=== PATIENT | female | born 1950 | race Caucasian/White ===

== ENCOUNTER 2016-06-26 10:01 | Inpatient (IN) | payer OTHER, MEDICARE ==
[~2016-06-26] VITALS: Ht 157.5 cm; Wt 72.3 kg
[2016-07-28] MEDS ORDERED: HYDR-3533 PO (11:22)
[2016-07-28] MEDS ORDERED: MOBI15TA PO (11:22)
[2016-07-28] MEDS ORDERED: METO50TA PO (11:22)
[2016-07-28] MEDS ORDERED: VITA10007 PO (11:22)
[2016-07-28] MEDS ORDERED: CINN500T PO (11:22)
[2016-07-28] MEDS ORDERED: CALC600T25 PO (11:22)
[2016-07-28] MEDS ORDERED: TEMA30CA PO (11:22)
[2016-07-28] MEDS ORDERED: TRAM50TA PO (11:22)
[2016-07-28] MEDS ORDERED: RISP1TAB2 PO (11:22)
[2016-07-28] MEDS ORDERED: AMLO5TAB2 PO (11:22)
[2016-07-28] MEDS ORDERED: HYDR25TA5 PO (11:22)
[2016-07-28] MEDS ORDERED: FISH1000 PO (11:22)
[2016-07-28] MEDS ORDERED: LISI-515 PO (11:22)
[2016-07-28] MEDS ORDERED: SUPETAB20 PO (11:22)
[2016-07-28] MEDS ORDERED: METF500T PO (11:22)
[2016-07-28] MEDS ORDERED: META48.53 PO (11:22)
[2016-07-28] MEDS ORDERED: VITA100018 PO (11:22)
[2016-07-28] MEDS ORDERED: BACTOIN EACH NARE (11:35)
[2016-07-28] MEDS ORDERED: SILV1CRE80 TOPICAL (11:35)
[2016-07-31] MEDS ORDERED: SODIUM CHLOR 0.9% 250 ML INJ 250 ML ONE (06:09)
[2016-07-31] MEDS ORDERED: ceFAZolin 2 GM PREMIX 50 ML ONE (06:09)
[2016-07-31] MEDS ORDERED: DEXAMETHASONE SOD PHOS 20 MG/5 ML VIAL ONE (06:09)
[2016-07-31] MEDS ORDERED: VANCOMYCIN HCL 1000 MG VIAL ONE (06:09)
[2016-07-31 06:10] VITALS: BP 109/52; PULSE 59; RESP 20; TEMP 97.9; O2SAT 98
[2016-07-31] MEDS ORDERED: LACTATED RINGER'S 1000 ML INJ 1,000 ML ONE (06:10)
[2016-07-31] MEDS ORDERED: MIDAZOLAM HCL 5 MG/5 ML VIAL ONE (06:57)
[2016-07-31] MEDS ORDERED: DEXAMETHASONE SOD PHOS 20 MG/5 ML VIAL IV ONE (07:15)
[2016-07-31] MEDS ORDERED: VANCOMYCIN 1000 MG/NS 250 ML (for <70 kg) IV SCH ×2 (07:15)
[2016-07-31] MEDS: ROPIVACAINE PERI-ARTICULAR INJECTION. PERIART SCH ×10 (07:15→07:46)
[2016-07-31] MEDS: TRANEXAMIC ACID INJ 988 MG in SODIUM CHLORIDE 0.9% INJ 100 ML IV SCH ×2 (07:15→07:43)
[2016-07-31] MEDS ORDERED: ceFAZolin 2 GM PREMIX 50 ML IV SCH (07:15)
[2016-07-31] MEDS: TRANEXAMIC PERI-ARTICULAR 3,000 MG/NS 100 ML P-ARTICULR SCH ×4 (07:15→07:46)
[2016-07-31] MEDS ORDERED: POVIDONE IODINE 7.5% SCRUB 118 ML BOTTLE TOP SCH (07:15)
[2016-07-31] MEDS ORDERED: CHLORHEXIDINE GLUCONATE 4% SOLN 120 ML BTL TOP SCH (07:15)
[2016-07-31] MEDS ORDERED: HYDR-3288 PO (07:23)
[2016-07-31] MEDS ORDERED: ENOX30P SQ (07:24)
[2016-07-31] MEDS ORDERED: ASPI81CH3 CHEW (07:25)
[2016-07-31] MEDS ORDERED: MAGNESIUM HYDROXIDE SUSP 30 ML CUP PO PRN (07:30)
[2016-07-31] MEDS ORDERED: MORPHINE SULFATE 4 MG/ML INJ IV PUSH PRN (07:30)
[2016-07-31] MEDS ORDERED: ALUMINUM/MAGNESIUM/SIMETH 30 ML CUP PO PRN (07:30)
[2016-07-31] MEDS ORDERED: ONDANSETRON HCL 4 MG/2 ML VIAL IVP PRN (07:30)
[2016-07-31] MEDS ORDERED: SODIUM CHLORIDE 0.9% FLUSH 5 ML FLUSH IVF PRN (07:30)
[2016-07-31] MEDS ORDERED: NALOXONE HCL 0.4 MG/ML AMP IV PRN (07:30)
[2016-07-31] MEDS ORDERED: diphenhydrAMINE HCL 50 MG/ML VIAL IV PRN (07:30)
[2016-07-31] MEDS ORDERED: BISACODYL 10 MG SUPP PR PRN (07:30)
[2016-07-31] MEDS ORDERED: GENTAMICIN SULFATE 80 MG/2 ML VIAL IRRIGATION ONE (07:46)
[2016-07-31] MEDS: LISINOPRIL 20 MG TAB PO SCH ×2 (09:00→21:19)
[2016-07-31] MEDS: amLODIPine BESYLATE 5 MG TAB PO SCH (09:00)
[2016-07-31] MEDS: SODIUM CHLORIDE 0.9% FLUSH 5 ML FLUSH IVF SCH ×2 (09:00→21:00)
[2016-07-31] MEDS: METOPROLOL TARTRATE 50 MG TAB PO SCH ×2 (09:00→21:19)
[2016-07-31] MEDS: HYDROCHLOROTHIAZIDE 25 MG TAB PO SCH (09:00)
[2016-07-31] MEDS ORDERED: Post-op Orders (for Pharmacy) MISC XX ONE (09:06)
[2016-07-31] MEDS ORDERED: fentaNYL CITRATE 250 MCG/5 ML AMP ONE (09:26)
[2016-07-31] MEDS: SODIUM CHLOR 0.9% 1000 ML INJ 1,000 ML IV SCH ×2 (09:29→17:21)
--- NOTE | 2016-07-31 09:41 | RADRPT ---
EXAM DATE/TIME: 07/31/2016 09:14 [place] COMPARISON: No previous studies available for comparison. INDICATIONS : Left knee post operative. MEDICAL HISTORY : None. SURGICAL HISTORY : Left knee replacement. ENCOUNTER: Initial ACUITY: 1 day PAIN SCORE: Non-responsive. LOCATION: Right knee FINDINGS: Two view examination of the right knee demonstrates total knee arthroplasty with expected regional in tra-articular air. All 3 components are appropriately positioned without fracture. CONCLUSION: Appropriate postoperative appearance of the right knee status post total arthroplasty. No fractu re. Damon Steve MD on July 31, 2016 at 9:38 Board Certified Radiologist. This report was verified electronically.
[2016-07-31] MEDS ORDERED: DO NOT ADM ANY ANTICOAGULANT DRUGS XX PRN (09:52)
[2016-07-31] MEDS ORDERED: ENALAPRILAT 1.25 MG/ML VIAL IV PUSH PRN (10:00)
[2016-07-31 10:19] VITALS: BP 132/58; PULSE 86; RESP 16; TEMP 95.5; O2SAT 100
[2016-07-31] MEDS: ACETAMINOPHEN/HYDROcodone 325 MG/7.5 MG TAB PO PRN ×3 (10:40→21:22)
[2016-07-31] MEDS: INSULIN ASPART SUPPLEMENTAL SCALE SQ SCH ×3 (11:00→21:18)
[2016-07-31] MEDS ORDERED: NEOSTIGMINE 3 MG/3 ML SYR IV ONE (12:39)
[2016-07-31] MEDS ORDERED: ONDANSETRON HCL 4 MG/2 ML VIAL IV PUSH ONE (12:39)
[2016-07-31] MEDS ORDERED: ePHEDrine/NS 25 MG/5 ML SYR IV ONE (12:39)
[2016-07-31] MEDS ORDERED: PHENYLEPH/NS 1000 MCG/10 ML SYR IV ONE (12:39)
[2016-07-31] MEDS ORDERED: PROPOFOL 200 MG/20 ML AMP IV ONE (12:39)
[2016-07-31] MEDS ORDERED: BUPIVACAINE LIPOSOME PF 1.3% 20 ML VIAL ONE (12:40)
[2016-07-31 14:20] VITALS: O2SAT 99
--- NOTE | 2016-07-31 15:57 | MP ---
cc: CHANTE NEVAREZ M.D. DATE OF SURGERY: 07/31/2016 PREOPERATIVE DIAGNOSIS Right knee osteoarthritis. POSTOPERATIVE DIAGNOSES Right knee osteoarthritis. PROCEDURE Right total knee arthroplasty. SURGEON Dr. Chante Nevarez. DETENTION WORKER YOLANDA Hoskins ANESTHESIA General with a adductor canal block. ESTIMATED BLOOD LOSS Less than 50 ccs. TOURNIQUET TIME 46 minutes at 250 mmHg. COMPLICATIONS None. IMPLANTS USED DePuy Attune size 5 posterior stabilized femoral component, size 5 rotating platform tibia baseplate, size 5 mm polyethylene tibial insert, size 35 mm patella. JUSTIFICATION This patient is a 56-year-old female with a history of severe end-stage osteoarthritis involving the right knee. She has severe disabling pain with standing, walking, ambulation, weight-bearing activity, even severe pain at rest. She has failed greater than 3 months of nonoperative conservative treatment to include medication, therapy, injections, ambulatory assisted aids, home exercise program, activity modification, weight loss attempts. X-rays of the right knee reveal severe end-stage osteoarthritis with [id number] joint space narrowing, subchondral sclerosis, subchondral cyst, osteophyte formation and valgus deformity. The patient was counseled as to the risks, benefits and alternatives to a total knee arthroplasty. The risks were discussed which include but limited to anesthesia, bleeding, infection, damage to nerves, blood vessels, pain, stiffness, failure of components, blood clots, pulmonary embolism, even . The patient's pain is severe, it interferes with activities of daily living. She favored the benefits over the risks and did wish to proceed with surgery. PROCEDURE IN DETAIL A written consent was obtained. The patient was identified by name, taken to the operating room and placed supine on the operating table. General anesthesia was administered as well as 2 grams of IV Ancef and 1 gram of IV vancomycin. A well-padded tourniquet was placed on the right thigh. The right lower extremity was prepped and draped using isopropyl alcohol, Hibiclens solution and Chloraprep solution. After a time-out was performed an Esmarch bandage was used to exsanguinate the right lower extremity. The tourniquet was inflated to 250 mmHg. A longitudinal incision was made over the anterior aspect of the right knee and medial parapatellar arthrotomy was performed. The patella was everted. A patellar resection guide was used to resect 9.5 mm of patella. The size 35 mm guide was placed, three drill holes were placed and a 35 mm trial fit well. Attention was turned to the femur where an intramedullary guide mariama was placed. The distal femoral guide was set to remove 10 mm of distal femur 5 degrees off the anatomic valgus axis alignment. An oscillating saw was used to perform the distal femoral cut. An extramedullary tibial guide was placed and used to resect 5 mm off the lowest portion of the medial tibial plateau. The tibial guide was pinned in place. Tibia cut was performed. There was evidence of some bone loss laterally and I moved the guide down to take two additional millimeters of bone off the tibia. A 5 mm spacer block showed full extension. Attention was turned back to the femur where the AP sizing block measured a size 5. The 3 degree external rotation anterior reference guide was used to pin a size [address] The anterior, posterior chamfer cuts were performed. A size 5 PCL box cut was pinned in place, the PCL was boxed out with an oscillating saw. The medial and lateral meniscus remnants were removed as well as bone and soft tissue away from the posterior portion of the knee. A size 5 tibia baseplate was pinned in place. The tibia was drilled and punched. The final components were cemented in place. With the 5-mm tibial insert the leg could achieve full extension, 0 degrees of flexion to 140. No evidence of tibial lift-off, varus-valgus balance appeared appropriate and symmetric and the patella was noted to track centrally within the trochlear groove. The tourniquet was deflated. Bovie cautery was used for hemostasis. The knee was thoroughly irrigated with sterile saline pulse lavage antibiotic impregnated solution. The arthrotomy incision was closed with #1 Vicryl suture, subcutaneous layer with 2-0 Vicryl suture, skin was closed with Dermabond. Sterile dressing was applied. The patient tolerated the procedure well with no intraoperative complications noted. Kulwinder Winston, physician commissary assistant certified was present during the entire procedure to include patient positioning and the procedure itself. The medical necessity of a physician commissary assistant was indicated in this case due to the complexity of the procedure. He assisted with appropriate manipulation of the leg and also retraction of muscle, tendon, bone and neurovascular structures. He assisted with both preparation of bone cuts and also implantation of the prosthetic replacement. MD NURYS Nicolas/CECI /8:50 AM /3:22 PM
[2016-07-31 16:00] VITALS: BP 103/53; PULSE 70; RESP 18; TEMP 98.5; O2SAT 97
[2016-07-31] MEDS: MAGNESIUM HYDROXIDE SUSP 30 ML CUP PO SCH ×2 (16:00→21:17)
[2016-07-31 17:41] LABS: ANION GAP 6 MEQ/L (5-15); BICARBONATE 28.7 MEQ/L (21.0-32.0); BLOOD UREA NITROGEN 14 MG/DL (7-18); CHLORIDE 97 MEQ/L (98-107); GLOMERULAR FILTRATION RATE 67 ML/MIN (>89); POTASSIUM 4.1 MEQ/L (3.5-5.1); SODIUM (NA) 132 MEQ/L (136-145)
[2016-07-31] MEDS ORDERED: DOCUSATE SODIUM 50 MG/SENNA 8.6 MG TAB PO ONE (17:45)
[2016-07-31] MEDS: metFORMIN HCL 500 MG TAB PO SCH (18:30)
--- NOTE | 2016-07-31 19:13 | PD.CONS ---
HPI Service [facility] ([place], [place])ists Consult Requested By Primary Care Physician Angela Sanders Diagnoses: History of Present Illness 66-year-old female with a history of hypertension, diabetes mellitus, arthritis who is postoperative day 0 status post right total knee arthroplasty. He reports feeling fine prior to the procedure. She currently denies any nausea, vomiting, chest pain, shortness of breath. She does report a stress test 2 years ago which was negative. Most recent bowel movement was yesterday. Review of Systems performed and negative except for HPI and past medical history. Past Family Social History Allergies: Coded Allergies: Codeine (Verified Allergy, Severe, itching, 07/31/16) Gabapentin (Verified Allergy, Severe, cramps, 07/31/16) Pravastatin (Verified Allergy, Severe, cramps, 07/31/16) Past Medical History Arthritis Fibromyalgia Insomnia First rib bones bones removed bilaterally in 1979 due to thoracic outlet syndrome Past Surgical History First ribs bilaterally removed in 1979 Tonsillectomy Family History Father at age 39 from lung cancer. Mother in her 70s due to cough patient's from colon cancer, heart disease. Social History Nonsmoker, nondrinker, denies any illicit drugs. Physical Exam Vital Signs Vital Signs Date Time Temp Pulse Resp B/P Pulse Ox O2 Delivery O2 Flow Rate FiO2 07/31/16 16:00 98.5 70 18 103/53 97 07/31/16 14:20 99 07/31/16 10:19 95.5 86 16 132/58 100 07/31/16 09:45 67 16 138/71 95 Nasal Cannula 2 07/31/16 09:30 55 16 148/71 95 Nasal Cannula 2 07/31/16 09:15 65 16 142/70 95 Nasal Cannula 2 07/31/16 09:05 98.1 77 16 140/74 94 Nasal Cannula 2 07/31/16 06:10 97.9 59 20 109/52 98 Physical Exam GENERAL: This is a well-nourished, well-developed patient, in no apparent distress.sitting up in bed. SKIN: No rashes, ecchymoses or lesions. Cool and dry. HEAD: Atraumatic. Normocephalic EYES: Pupils equal round and reactive. Extraocular motions intact. No scleral icterus. No injection or drainage. ENT: Nose without bleeding, purulent drainage or septal hematoma. Throat without erythema, tonsillar hypertrophy or exudate. Uvula midline. Airway patent. NECK: Trachea midline. No JVD or lymphadenopathy. Supple, nontender, no meningeal signs. CARDIOVASCULAR: Regular rate and rhythm without murmurs, gallops, or rubs. RESPIRATORY: Clear to auscultation. Breath sounds equal bilaterally. No wheezes , rales, or rhonchi. GASTROINTESTINAL: Abdomen soft, non-tender, nondistended. No hepato-splenomegaly , or palpable masses. No guarding. MUSCULOSKELETAL: Extremities without clubbing, cyanosis, or edema. No joint tenderness, effusion, or edema noted. No calf tenderness. Negative Homans sign bilaterally.postoperative knee not examined. NEUROLOGICAL: Awake and alert. Cranial nerves II through XII intact. Motor and sensory grossly within normal limits. 5 out of 5 strength bilateral upper extremities. Postoperative knee not examined. Peripheral profusion intact. Normal speech. Laboratory Laboratory Tests Test 07/31/16 07/31/16 06:18 16:35 Blood Type B NEGATIVE Antibody Screen NEGATIVE Blood Bank Comment Hemoglobin 11.7 Sodium Level 132 Potassium Level 4.1 Chloride Level 97 Carbon Dioxide Level 28.7 Anion Gap 6 Blood Urea Nitrogen 14 Creatinine 0.85 Estimat Glomerular Filtration 67 Rate Random Glucose 153 Calcium Level 8.3 Result Diagram: 07/31/16 1635 07/31/16 1635 Assessment and Plan Assessment and Plan //Postoperative total knee arthroplasty on 07/31/16 Postoperative management as per surgical service Pain management as per surgical service Await return of bowel function. Cathartics ordered. //Hypertension. Blood pressure except will. Continue amlodipine. Continue lisinopril Continue hydrochlorothiazide. Continue metoprolol. Continue to monitor. As needed Vasotec. //Hyponatremia. Mild. Unknown chronicity. Possibly secondary to hydrochlorothiazide. We will discontinue fluids and continue to monitor. //Diabetes mellitus. Chronic. A1c pending. Continue metformin. Insulin sliding scale. //insomnia. Chronic. Continue Risperdal at night. Prophylaxis. As per surgical service. Discussed Condition With patient, nurse. Jose Marie MD Jul 31, 2016 19:12
[2016-07-31 20:07] VITALS: BP 117/55; PULSE 60; RESP 19; TEMP 96.8; O2SAT 100
[2016-07-31] MEDS: SENNOSIDES 8.6 MG TAB PO SCH (21:17)
[2016-07-31] MEDS: risperiDONE 1 MG TAB PO SCH (21:18)
[2016-07-31] MEDS: ENOXAPARIN SODIUM 30 MG/0.3 ML SYRINGE SQ SCH (21:18)
[2016-07-31 21:22] LABS: HEMOGLOBIN A1b 0.9 %; HEMOGLOBIN Ao 85.2 %; HEMOGLOBIN F 0.9 %; HEMOGLOBIN LA1C 2.5 %; HEMOGLOBIN P3 3.6 %
[2016-08-01] VITALS (8 sets, daily range): BP systolic 100–129; BP diastolic 47–66; PULSE 52–70; RESP 15–19; TEMP 96–98.8; O2SAT 96–99
[2016-08-01] MEDS: TEMAZEPAM 15 MG CAP PO SCH ×2 (00:33→22:41)
[2016-08-01] MEDS: SODIUM CHLOR 0.9% 1000 ML INJ 1,000 ML IV SCH ×3 (00:34→21:20)
[2016-08-01 06:07] LABS: HEMATOCRIT 30.5 % (35.0-46.0); MEAN CELL VOLUME 88.5 FL (80.0-100.0); MEAN CORPUSCULAR HEMOGLOBIN 31.2 PG (27.0-34.0); MEAN CORPUSCULAR HGB CONC 35.2 % (32.0-36.0); PLATELET COUNT 246 TH/MM3 (150-450); RED BLOOD COUNT 3.44 MIL/MM3 (4.00-5.30); RED CELL DISTRIBUTION WIDTH 12.8 % (11.6-17.2); REVIEW FLAG FINAL; WHITE BLOOD COUNT 11.2 TH/MM3 (4.0-11.0)
[2016-08-01 06:34] LABS: BICARBONATE 28.6 MEQ/L (21.0-32.0); POTASSIUM 3.8 MEQ/L (3.5-5.1)
[2016-08-01] MEDS: INSULIN ASPART SUPPLEMENTAL SCALE SQ SCH ×4 (07:00→20:57)
--- NOTE | 2016-08-01 08:46 | PD.ORT.PN ---
Subjective Post Op Day #: 1 Subjective Remarks painful but tolerable. Objective Vitals Vital Signs Date Time Temp Pulse Resp B/P Pulse Ox O2 Delivery O2 Flow Rate FiO2 08/01/16 08:07 97.6 54 18 129/60 99 08/01/16 06:55 Room Air 08/01/16 04:32 96.0 54 18 119/56 99 08/01/16 00:11 96.2 52 19 120/58 96 07/31/16 20:07 96.8 60 19 117/55 100 07/31/16 19:17 Room Air 07/31/16 16:00 98.5 70 18 103/53 97 07/31/16 14:20 99 07/31/16 10:19 95.5 86 16 132/58 100 07/31/16 09:45 67 16 138/71 95 Nasal Cannula 2 07/31/16 09:30 55 16 148/71 95 Nasal Cannula 2 07/31/16 09:15 65 16 142/70 95 Nasal Cannula 2 07/31/16 09:05 98.1 77 16 140/74 94 Nasal Cannula 2 I/O 07/31/16 07/31/16 07/31/16 08/01/16 08/01/16 08/01/16 07:00 15:00 23:00 07:00 15:00 23:00 Intake Total 1370 ml 915 ml 845 ml Output Total 985 ml 700 ml 700 ml Balance 385 ml 215 ml 145 ml Intake Oral 720 ml 720 ml 360 ml IV Total 50 ml 195 ml 485 ml Other 600 ml Output Urine Total 835 ml 700 ml 700 ml Estimated Blood Loss 50 ml Other 100 ml # Bowel Movements 0 0 Result Diagram: 08/01/16 0525 08/01/16 0525 Objective Remarks in bed, nad dressing c/d/i neg homans nvi Assessment & Plan Ortho Post Op Day #: 1 Problem List: Assessment and Plan s/p R TKA wbat daily dressing changes lovenox d/c planning home with [facility] and pt rx in chart f/up dr. smith 2 weeks Jose Winston Aug 01, 2016 08:46
--- NOTE | 2016-08-01 08:48 | HHI.DCPOC ---
Discharge Care Plan Diagnosis: (1) Primary localized osteoarthrosis, lower leg Your Health Problems Are: Difficulty with ADL Goals to Promote Your Health * To prevent worsening of your condition and complications * To maintain your health at the optimal level Directions to Meet Your Goals Take your medications as prescribed Follow your dietary instruction Follow activity as directed Keep your appointments as scheduled Take your immunizations and boosters as scheduled If your symptoms worsen call your PCP, if no PCP go to Urgent Care Center or Emergency Room Smoking is Dangerous to Your Health. Avoid second hand smoke Call the 24-hour hour crisis hotline for domestic abuse at Jose Winston Aug 01, 2016 08:48
--- NOTE | 2016-08-01 08:49 | HHI.FF ---
Face to Face Verification Diagnosis: (1) Primary localized osteoarthrosis, lower leg Physical Therapy Gait training, Safety evaluation, Transfer training, bed to chair Knee: Total knee, Protocol: Right, Full weight bearing Right LE Weight Bearing: WB as tolerated Nursing RN: 3 days/week x 2 weeks Nursing: Sandrine teaching, Dressing changes Dressing Changes: Daily dressing change I have seen patient Opal Mcintosh on 08/01/16. My clinical findings support the need for the requested home health care services because: Limited ability to care for self High risk of falls I certify that my clinical findings support that this patient is homebound because: Post-op weakness Unsteady gait/balance Jose Winston Aug 01, 2016 08:49
[2016-08-01] MEDS ORDERED: WALKER WHEELS/F1 MIS (08:50)
[2016-08-01] MEDS ORDERED: COMMODE 3-IN-11 MIS (08:50)
[2016-08-01] MEDS: ACETAMINOPHEN/HYDROcodone 325 MG/7.5 MG TAB PO PRN ×4 (09:25→22:41)
[2016-08-01] MEDS: HYDROCHLOROTHIAZIDE 25 MG TAB PO SCH (09:35)
[2016-08-01] MEDS: MAGNESIUM HYDROXIDE SUSP 30 ML CUP PO SCH ×2 (09:35→21:17)
[2016-08-01] MEDS: METOPROLOL TARTRATE 50 MG TAB PO SCH ×2 (09:35→21:16)
[2016-08-01] MEDS: LISINOPRIL 20 MG TAB PO SCH ×2 (09:36→21:16)
[2016-08-01] MEDS: metFORMIN HCL 500 MG TAB PO SCH ×2 (09:36→17:37)
[2016-08-01] MEDS: amLODIPine BESYLATE 5 MG TAB PO SCH (09:36)
[2016-08-01] MEDS ORDERED: PNEUMOCOCCAL POLYVALENT INJ 25 MCG/0.5 ML SYR IM ONE (10:00)
[2016-08-01] MEDS: SODIUM CHLORIDE 0.9% FLUSH 5 ML FLUSH IVF SCH ×2 (12:21→21:00)
[2016-08-01] MEDS: SENNOSIDES 8.6 MG TAB PO SCH (21:16)
[2016-08-01] MEDS: MULTIVITAMINS/MINERALS THERAPEUTIC TAB PO SCH (21:16)
[2016-08-01] MEDS: risperiDONE 1 MG TAB PO SCH (21:16)
[2016-08-01] MEDS: DOCUSATE SODIUM 100 MG CAP PO SCH (21:16)
[2016-08-01] MEDS: ENOXAPARIN SODIUM 30 MG/0.3 ML SYRINGE SQ SCH (21:17)
--- NOTE | 2016-08-01 22:35 | HHI.PR ---
Subjective Remarks Patient seen this morning around 11 AM. Says she is feeling all right. Pain is controlled. Denies any nausea or vomiting. Still no bowel movement. Positive flatus however. Denies any chest pain or shortness of breath. Objective Vital Signs Date Time Temp Pulse Resp B/P Pulse Ox O2 Delivery O2 Flow Rate FiO2 08/01/16 20:18 98 Nasal Cannula 08/01/16 20:04 98.8 70 15 120/49 99 08/01/16 19:00 Room Air 08/01/16 16:08 98.7 57 15 100/47 97 08/01/16 12:06 97.2 59 16 120/66 98 08/01/16 08:52 98 21 08/01/16 08:07 97.6 54 18 129/60 99 08/01/16 06:55 Room Air 08/01/16 04:32 96.0 54 18 119/56 99 08/01/16 00:11 96.2 52 19 120/58 96 I/O 07/31/16 07/31/16 07/31/16 08/01/16 08/01/16 08/01/16 07:00 15:00 23:00 07:00 15:00 23:00 Intake Total 1370 ml 915 ml 845 ml 1060 ml Output Total 985 ml 700 ml 700 ml Balance 385 ml 215 ml 145 ml 1060 ml Intake Oral 720 ml 720 ml 360 ml 1060 ml IV Total 50 ml 195 ml 485 ml Other 600 ml Output Urine Total 835 ml 700 ml 700 ml Estimated Blood Loss 50 ml Other 100 ml # Voids 4 # Bowel Movements 0 0 Result Diagram: 08/01/1625 08/01/1625 Objective Remarks GENERAL: patient sitting up in chair. Appears comfortable. SKIN: Warm and dry. HEAD: Normocephalic. EYES: No scleral icterus. No injection or drainage. NECK: Supple, trachea midline. No JVD CARDIOVASCULAR: Regular rate and rhythm without murmurs, gallops, or rubs. RESPIRATORY: Breath sounds equal bilaterally. No accessory muscle use. GASTROINTESTINAL: Abdomen soft, non-tender, nondistended. MUSCULOSKELETAL: No cyanosis, or edema. postoperative knee not examined. Peripheral profusion intact. BACK: Nontender without obvious deformity. No CVA tenderness. A/P Assessment and Plan //Postoperative total knee arthroplasty on 07/31/16 Postoperative management as per surgical service Pain management as per surgical service Await return of bowel function. Continues on scheduled laxatives //Hypertension. Blood pressure acceptable. Continue amlodipine. Continue lisinopril Continue hydrochlorothiazide. Continue metoprolol. Continue to monitor. As needed Vasotec. //Hyponatremia. Mild. Unknown chronicity. Possibly secondary to hydrochlorothiazide. -08/01. Slight decrease in sodium. 130. Asymptomatic. Continue to monitor off fluids. //Diabetes mellitus. Chronic. A1c 5.4. Continue metformin. Insulin sliding scale. //insomnia. Chronic. Continue Risperdal at night. Prophylaxis. As per surgical service. Discharge Planning we will continue to follow Jose Marie MD Aug 01, 2016 22:35
[2016-08-02 00:11] VITALS: BP 98/46; PULSE 64; RESP 18; TEMP 98.6; O2SAT 94
[2016-08-02 04:09] VITALS: BP 113/48; PULSE 67; RESP 19; TEMP 99; O2SAT 95
[2016-08-02] MEDS: ACETAMINOPHEN/HYDROcodone 325 MG/7.5 MG TAB PO PRN ×2 (06:02→10:20)
[2016-08-02] MEDS: INSULIN ASPART SUPPLEMENTAL SCALE SQ SCH (06:02)
[2016-08-02 06:26] LABS: HEMATOCRIT 27.9 % (35.0-46.0); MEAN CELL VOLUME 88.8 FL (80.0-100.0); MEAN CORPUSCULAR HEMOGLOBIN 30.9 PG (27.0-34.0); MEAN CORPUSCULAR HGB CONC 34.8 % (32.0-36.0); PLATELET COUNT 239 TH/MM3 (150-450); RED BLOOD COUNT 3.14 MIL/MM3 (4.00-5.30); RED CELL DISTRIBUTION WIDTH 12.8 % (11.6-17.2); REVIEW FLAG FINAL; WHITE BLOOD COUNT 8.4 TH/MM3 (4.0-11.0)
[2016-08-02 07:19] LABS: BICARBONATE 30.5 MEQ/L (21.0-32.0)
[2016-08-02 07:30] VITALS: BP 113/58; PULSE 86; RESP 19; TEMP 97.8; O2SAT 91
--- NOTE | 2016-08-02 08:14 | PD.ORT.PN ---
Subjective Post Op Day #: 2 Subjective Remarks feeling better. Objective Vitals Vital Signs Date Time Temp Pulse Resp B/P Pulse Ox O2 Delivery O2 Flow Rate FiO2 08/02/16 07:30 97.8 86 19 113/58 91 08/02/16 07:05 Room Air 08/02/16 04:09 99.0 67 19 113/48 95 08/02/16 00:11 98.6 64 18 98/46 94 08/01/16 20:18 98 Nasal Cannula 08/01/16 20:04 98.8 70 15 120/49 99 08/01/16 19:00 Room Air 08/01/16 16:08 98.7 57 15 100/47 97 08/01/16 12:06 97.2 59 16 120/66 98 08/01/16 08:52 98 21 I/O 08/01/16 08/01/16 08/01/16 08/02/16 08/02/16 08/02/16 07:00 15:00 23:00 07:00 15:00 23:00 Intake Total 845 ml 1060 ml 480 ml 480 ml Output Total 700 ml Balance 145 ml 1060 ml 480 ml 480 ml Intake Oral 360 ml 1060 ml 480 ml 480 ml IV Total 485 ml Output Urine Total 700 ml # Voids 4 3 2 # Bowel Movements 0 0 0 Result Diagram: 08/02/16 0506 08/02/16 0506 Objective Remarks in bed, nad incision no erythema, no drainage neg homans nvi Assessment & Plan Ortho Post Op Day #: 2 Problem List: Assessment and Plan s/p R TKA wbat daily dressing changes lovenox d/c planning home with [facility] and pt - cleared for d/c today rx in chart f/up dr. smith 2 weeks Jose Winston Aug 02, 2016 08:14
[2016-08-02] MEDS: MAGNESIUM HYDROXIDE SUSP 30 ML CUP PO SCH (08:38)
[2016-08-02] MEDS: HYDROCHLOROTHIAZIDE 25 MG TAB PO SCH (08:39)
[2016-08-02] MEDS: DOCUSATE SODIUM 100 MG CAP PO SCH (08:39)
[2016-08-02] MEDS: metFORMIN HCL 500 MG TAB PO SCH (08:39)
[2016-08-02] MEDS: MULTIVITAMINS/MINERALS THERAPEUTIC TAB PO SCH (08:39)
[2016-08-02] MEDS: amLODIPine BESYLATE 5 MG TAB PO SCH (08:39)
[2016-08-02] MEDS: METOPROLOL TARTRATE 50 MG TAB PO SCH (08:39)
[2016-08-02] MEDS: SODIUM CHLORIDE 0.9% FLUSH 5 ML FLUSH IVF SCH (08:40)
[2016-08-02] MEDS: LISINOPRIL 20 MG TAB PO SCH (08:44)
[2016-08-02 09:13] VITALS: O2SAT 94
[2016-08-02 12:00] VITALS: BP 107/52; PULSE 75; RESP 20; TEMP 98.8; O2SAT 95
--- NOTE | 2016-08-09 08:37 | MD ---
cc: CHANTE NEVAREZ ADMISSION DATE: 07/31/2016 DISCHARGE DATE: 08/02/2016 ADMISSION DIAGNOSIS Severe degenerative osteoarthritis right knee. DISCHARGE DIAGNOSIS Severe degenerative osteoarthritis right knee. HISTORY OF PRESENT ILLNESS Ms. Mcintosh is a 66-year-old female who presented to the [facility] for evaluation by Dr. Chante Nevarez regarding her severe and progressive right knee pain. The patient states the pain has been bothering her for greater than one year duration for which she has had treatment for this ailment. She states her pain is aggravated by weightbearing activities. She has no alleviating factors, although in the past she has tried medications, bracing, physical therapy, home exercise program as well as corticosteroid injections without significant relief of symptoms. She does have x-ray evidence of severe degenerative osteoarthritis of the right knee. While in the office the patient was counseled on her diagnosis and treatment options. The risks, benefits and indications all were discussed in great detail. The patient did elect to proceed with surgical intervention to include a right total knee arthroplasty. DATE OF SURGERY 08/08/2016 OPERATIVE PROCEDURE Right total knee arthroplasty. POSTOP After surgery the patient was admitted to [facility] where she received appropriate medical management, pain control, DVT prophylaxis, as well as physical therapy. DISCHARGE Once being discharged from the hospital the patient is cleared to go home where she will receive home health care and home physical therapy. She is in stable condition. She may weight-bear as tolerated. The patient is to receive daily dressing change and has been instructed on appropriate wound care management. DISCHARGE MEDICATIONS She has been provided prescriptions for pain control as well as DVT prophylaxis medication. FOLLOWUP The patient has also been provided a follow-up appointment to see Dr. Chante Nevarez in the office in approximately two weeks from the date of surgery. The patient has asked appropriate questions which have all been answered. The patient is cleared for discharge. Dictated by: Kulwinder Winston PA-C Chante Nevarez MD JWM/SSB /8:18 AM /8:33 AM
== END 2016-08-02 12:06 | disposition home health service (06) | DRG 470 ==
LOC: HSDI 07-31 05:27 → N06A 07-31 10:01
PROVIDERS: ADMIT Orthopaedic Surgery Sports Medicine; ATTEND Orthopaedic Surgery Sports Medicine
PROC: 3E0T3BZ Introduction of Anesthetic Agent into Peripheral Nerves and Plexi, Percutaneous Approach (ICD-10-PCS; 2016-07-31)
PROC: 0SRC0J9 Replacement of Right Knee Joint with Synthetic Substitute, Cemented, Open Approach (ICD-10-PCS; principal; 2016-07-31 07:10)
DX: M17.11 Unilateral primary osteoarthritis, right knee (principal); E87.1 Hypo-osmolality and hyponatremia; I10 Essential (primary) hypertension; E11.9 Type 2 diabetes mellitus without complications; Z79.84 Long term (current) use of oral hypoglycemic drugs; G47.00 Insomnia, unspecified; Z23 Encounter for immunization
CPT/HCPCS: 73560; 80048; 82948; 83036; 85018; 85027; 86850; 86900; 86901; 90471; 90732; 94150; C1776; C9290; G0009; J0171; J0690; J0735; J1100; J1580; J1650; J1815; J1885; J2250; J2370; J2405; J2710; J2795; J3010; J3370; J7030; J7050; J7120; L1830